=== PATIENT | male | born 1945 | race Caucasian/White ===

== ENCOUNTER → 2017-12-25 | Outpatient (CLI) | payer MEDICARE ==
--- NOTE | 2017-12-25 12:11 | ECHOF ---
Referral Reason:R00.1 Bradycardia, R01.1 Cardiac Murmur MEASUREMENTS -------- HEIGHT: 180.3 cm WEIGHT: 105.7 kg BP: RVIDd: 2.5 cm (< 3.3) IVSd: 1.2 cm (0.6 - 1.1) LVIDd: 4.7 cm (3.9 - 5.3) LVPWd: 1.4 cm (0.6 - 1.1) IVSs: 1.6 cm LVIDs: 2.2 cm LVPWs: 1.8 cm LAESV Index (A-L): 30.89 ml/m Ao Diam: 3.9 cm (2.0 - 3.7) AV Cusp: 2.2 cm (1.5 - 2.6) LA Diam: 4.0 cm (2.7 - 3.8) MV EXCURSION: 19.089 mm (> 18.000) MV EF SLOPE: 110 mm/s (70 - 150) EPSS: 0.5 cm MV E Moi: 0.68 m/s MV DecT: 303 ms MV A Moi: 0.83 m/s MV E/A Ratio: 0.82 AV maxP.38 mmHg AV meanP.03 mmHg RAP: 5.00 mmHg RVSP: 12.51 mmHg FINDINGS -------- Sinus rhythm. This was a technically good study. The left ventricular size is normal. There is mild concentric left ventricular hypertrophy. Overa ll left ventricular systolic function is normal with, an EF between 55 - 60 %. The right ventricle is normal in size and function. LA is midly dilated 29-33ml/m2. The right atrium is normal in size. Aortic valve is trileaflet and is mildly thickened. There is mild aortic valve sclerosis. Peak/me an gradient across the Aortic Valve is 23.38mmHg / 12.03mmHg. The mitral valve leaflets are mildly thickened. Mild mitral regurgitation is present. Mild tricuspid regurgitation present. The right ventricular systolic pressure, as measured by Doppl er, is 12.51mmHg. Pulmonic valve appears structurally normal. The aortic root size is normal. Normal inferior vena cava with normal inspiratory collapse consistent with estimated right atrial pre ssure of 5 mmHg. The pericardium is normal. CONCLUSIONS -------- 1. Sinus rhythm. 2. This was a technically good study. 3. The left ventricular size is normal. 4. There is mild concentric left ventricular hypertrophy. 5. Overall left ventricular systolic function is normal with, an EF between 55 - 60 %. 6. The right ventricle is normal in size and function. 7. LA is midly dilated 29-33ml/m2. 8. The right atrium is normal in size. 9. Aortic valve is trileaflet and is mildly thickened. 10. There is mild aortic valve sclerosis. 11. Peak/mean gradient across the Aortic Valve is 23.38mmHg / 12.03mmHg. 12. The mitral valve leaflets are mildly thickened. 13. Mild mitral regurgitation is present. 14. Mild tricuspid regurgitation present. 15. The right ventricular systolic pressure, as measured by Doppler, is 12.51mmHg. 16. Pulmonic valve appears structurally normal. 17. The aortic root size is normal. 18. Normal inferior vena cava with normal inspiratory collapse consistent with estimated right atrial pressure of 5 mmHg. 19. The pericardium is normal. BRUSH WORKER: Salena Pugh RDCS
--- NOTE | 2018-01-01 12:54 | HM ---
HOLTER MONITOR REPORT DCG: INDICATION: Palpitations. The patient was monitored for 24 hours. The baseline rhythm appeared to be a sinus mechanism with a minimum heart rate of 39 beats per minute, max heart rate 117 beats per minute. The average heart rate of 52 beats per minute. Ventricular ectopic events were rare and reported is less than 1% of total pace count and presented as PVCs as well as bigeminy and trigeminy. Supraventricular ectopy events were rare. No evidence of sinus pause or sinus arrest. No evidence of any advanced AV block seen. The patient reported no symptoms. CONCLUSION: 1. Sinus rhythm as a baseline mechanism. 2. Rare ventricular ectopic events. 3. Rare supraventricular ectopic events. 4. The patient did have multiple episodes of bigeminy and trigeminy. 5. No evidence of sinus pause or sinus arrest. 6. The patient reported no symptoms. MMODL / IJN: [id number] /
== END | disposition home or self-care (01) ==
LOC: RADECHMAIN 11:15
PROVIDERS: ATTEND Family Medicine
DX: I08.3 Combined rheumatic disorders of mitral, aortic and tricuspid valves (principal)
CPT/HCPCS: 93225; 93226; 93306

== ENCOUNTER 2018-01-14 06:48 | Day surgery (SDC) | payer MEDICARE ==
[2018-01-12 15:19] VITALS: BMI 30.2
[~2018-01-14 06:48] MED LIST: LACTATED RINGERS 1,000 ML IV SCH
[2018-01-14 07:15] VITALS: RESP 14; TEMP 97.9
[2018-01-14] MEDS ORDERED: LIDOCAINE 1% INJ 10MG/ML (20 ML MDV) ONE (07:40)
[2018-01-14] MEDS ORDERED: PROPOFOL 10 MG/ML 20 ML VIAL IV ONE (07:40)
--- NOTE | 2018-01-14 08:00 | P.PCN ---
Date of Procedure: 01/14/18 Procedure(s) Performed: BRIEF HISTORY: Patient is a 72-year-old pleasant male, scheduled for an elective colonoscopy as a part of evaluation of prior history of colon polyps. Last upper endoscopy was 5 years ago. PROCEDURE PERFORMED: Colonoscopy. PREOPERATIVE DIAGNOSIS: History of colon polyps. IV sedation per Anesthesia. PROCEDURE: After informed consent was obtained, the patient, was brought into the endoscopy unit. IV sedation was administered by Anesthesia under continuous monitoring. Digital rectal examination was normal. Initially the Olympus CF- 160 flexible video colonoscope was then inserted in the rectum, gradually advanced into the cecum without any difficulty. Careful examination was performed as the scope was gradually being withdrawn. Ileocecal valve and the appendiceal orifice were visualized and appeared normal. Prep was fair.. Mucosa of the cecum, appeared normal. In the ascending colon there was a 7-8 mm flat polyp that was by snare polypectomy. Rest of the ascending colon, transverse colon, descending colon, sigmoid colon, and rectum appeared normal. Retroflexion was performed in the rectum and no lesions were seen. The patient tolerated the procedure well. IMPRESSION: 7-8 mm flat ascending colon polyp status post polypectomy Rest of the colon appeared normal RECOMMENDATIONS: Findings of this examination were discussed with the patient as well as his family. He was advised to follow with the biopsy results. If the biopsy shows adenoma, she can have a repeat colonoscopy in 5 years.
[2018-01-14 08:19] VITALS: BP 118/70; PULSE 52
== END 2018-01-14 08:57 | disposition home or self-care (01) ==
LOC: ORWHC2ENDO 06:48
PROVIDERS: ATTEND Internal Medicine Gastroenterology
DX: Z12.31 Encounter for screening mammogram for malignant neoplasm of breast (principal); D17.79 Benign lipomatous neoplasm of other sites; Z86.010 Personal history of colon polyps; E78.5 Hyperlipidemia, unspecified; N40.0 Benign prostatic hyperplasia without lower urinary tract symptoms; Z88.1 Allergy status to other antibiotic agents; Z88.2 Allergy status to sulfonamides; Z79.899 Other long term (current) drug therapy; Z79.82 Long term (current) use of aspirin
CPT/HCPCS: 88305; 45385; J2001; J2704

== ENCOUNTER → 2021-03-13 | Outpatient (CLI) | payer MEDICARE ==
--- NOTE | 2021-03-13 15:00 | ECHOF ---
Referral Reason:R01.1 murmur MEASUREMENTS -------- HEIGHT: 185.4 cm WEIGHT: 91.2 kg BP: IVSd: 1.1 cm (0.6 - 1.1) LVIDd: 4.7 cm (3.9 - 5.3) LVPWd: 1.2 cm (0.6 - 1.1) EDV(Teich): 104 ml IVSs: 1.9 cm LVIDs: 2.7 cm LVPWs: 1.8 cm %IVS Thck: 73 % ESV(Teich): 28 ml EF(Teich): 73 % %FS: 42 % SV(Teich): 76 ml RVIDd: 4.3 cm (< 3.3) LALs A4C: 6.5 cm LAAs A4C: 27.0 cm LAESV A-L A4C: 95 ml LAESV MOD A4C: 90 ml LALs A2C: 6.4 cm LAAs A2C: 25.6 cm LAESV A-L A2C: 86 ml LAESV MOD A2C: 82 ml LAESV(A-L): 91 ml LAESV Index (A-L): 42.17 ml/m Ao Diam: 3.6 cm (2.0 - 3.7) LA Diam: 4.6 cm (2.7 - 3.8) AV Cusp: 1.9 cm (1.5 - 2.6) EPSS: 0.3 cm MV E Moi: 0.71 m/s MV DecT: 402 ms MV Dec Glascock: 1.8 m/s MV A Moi: 0.64 m/s MV E/A Ratio: 1.11 MV PHT: 117 ms LVOT Vmax: 1.03 m/s LVOT maxP.23 mmHg AV Vmax: 2.14 m/s AV maxP.26 mmHg AV Vmax: 2.32 m/s AV Vmean: 1.76 m/s AV maxP.59 mmHg AV meanP.50 mmHg AV Env.Ti: 308 ms AV VTI: 54.1 cm AR Vmax: 3.72 m/s AR maxP.31 mmHg AR PHT: 1112 ms AR Dec Time: 3835 ms AR Dec Glascock: 1.0 m/s TR Vmax: 2.26 m/s TR maxP.37 mmHg RAP: 5.00 mmHg RVSP: 25.37 mmHg MV EF SLOPE: 64.48 mm/s (70 - 150) MV EXCURSION: 21.52 mm (> 18.000) FINDINGS -------- Resting bradycardia (HR<60bpm). This was a technically adequate study. The left ventricular size is normal. There is mild concentric left ventricular hypertrophy. Overa ll left ventricular systolic function is normal with, an EF between 55 - 60 %. The right ventricle is moderately enlarged. LA is moderately dilated 34-39 ml/m2 The right atrial size is normal. Interatrial and interventricular septum intact. The aortic valve is trileaflet and appears structurally normal. Trace to mild aortic regurgitation. There is mild aortic stenosis present. The maximum velocity across the aortic valve is 2.32m/s. Peak/mean gradient across the Aortic Valve is 21.59mmHg / 13.50mmHg. Mild mitral regurgitation is present. Mild tricuspid regurgitation present. There is no evidence of pulmonary hypertension. The right v entricular systolic pressure, as measured by Doppler, is 25.37mmHg. There is no pulmonic regurgitation present. The aortic root size is normal. IVC Not well visulized. There is no pericardial effusion. CONCLUSIONS -------- 1. The left ventricular size is normal. 2. There is mild concentric left ventricular hypertrophy. 3. Overall left ventricular systolic function is normal with, an EF between 55 - 60 %. 4. The right ventricle is moderately enlarged. 5. LA is moderately dilated 34-39 ml/m2 6. Trace to mild aortic regurgitation. 7. There is mild aortic stenosis present. 8. The maximum velocity across the aortic valve is 2.32m/s. 9. Peak/mean gradient across the Aortic Valve is 21.59mmHg / 13.50mmHg. 10. Mild mitral regurgitation is present. 11. Mild tricuspid regurgitation present. MARKETING ANALYTICS ANALYST: Felicia Matos GISSELLE
== END | disposition home or self-care (01) ==
LOC: RADECHMAIN 11:06
PROVIDERS: ATTEND Family Medicine
DX: I08.3 Combined rheumatic disorders of mitral, aortic and tricuspid valves (principal)
CPT/HCPCS: 93306

== ENCOUNTER 2021-05-31 20:22 | Emergency (ER) | payer MEDICARE ==
[2021-05-31 20:30] VITALS: BP 127/71; PULSE 50; RESP 19; TEMP 97.8
--- NOTE | 2021-05-31 21:05 | ED ---
Recheck HPI - General Chief Complaint: Recheck/Abnormal Lab/Rx Stated Complaint: covid exposure Source: patient, RN notes reviewed Mode of arrival: ambulatory - History of Present Illness Initial Comments: Patient presents to the emergency department complaining of being exposed COVID- 19 and his . Patient really has no symptoms. Denies any shortness of breath. No fever. No sore throat. No headache. No body aches. No headache, no fever or chills, no changes in vision or hearing, no sore throat or difficulty with speech, no neck pain, no chest pain or shortness of breath, no abdominal pain, no nausea or vomiting, no changes in urination or bowel movements, no numbness or tingling, no extremity pain, no skin rashes or lesions. - Related Data Home Medications Medication Instructions Recorded Confirmed Ascorbic Acid [Vitamin C] 500 mg PO DAILY 01/12/18 01/14/18 Aspirin [Adult Low Dose Aspirin EC] 81 mg PO DAILY 01/12/18 01/14/18 Cholecalciferol (Vitamin D3) 2,000 unit PO DAILY 01/12/18 01/14/18 [Vitamin D3] Cranberry Fruit Concentrate 450 mg PO DAILY 01/12/18 01/14/18 [Cranberry] Doxazosin [Cardura] 1 mg PO BID 01/12/18 01/14/18 Ferrous Sulfate [Feosol] 325 mg PO DAILY 01/12/18 01/14/18 Finasteride [Proscar] 5 mg PO DAILY 01/12/18 01/14/18 Lovastatin [Mevacor] 40 mg PO HS 01/12/18 01/14/18 Lutein 20 mg PO DAILY 01/12/18 01/14/18 Multivitamin [Men's Multi-Vitamin] 1 each PO DAILY 01/12/18 01/14/18 [place]-3/Dha/Epa/Fish Oil [Fish Oil 300 mg PO DAILY 01/12/18 01/14/18 500 mg Softgel] Riboflavin (Vitamin B2) [Vitamin 100 mg PO DAILY 01/12/18 01/14/18 B-2] Zinc 50 mg PO DAILY 01/12/18 01/14/18 Allergies Allergy/AdvReac Type Severity Reaction Status Date / Time bacitracin Allergy Unknown Rash/Hives Verified 05/31/21 20:30 [From Neosporin ([id number])] neomycin Allergy Unknown Rash/Hives Verified 05/31/21 20:30 [From Neosporin ([id number])] polymyxin B Allergy Unknown Rash/Hives Verified 05/31/21 20:30 [From Neosporin ([id number])] Review of Systems ROS Statement: Those systems with pertinent positive or pertinent negative responses have been documented in the HPI. ROS Other: All systems not noted in ROS Statement are negative. 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 History of Any Multi-Drug Resistant Organisms: None Reported Past Surgical History: Hernia Repair Past Anesthesia/Blood Transfusion Reactions: No Reported Reaction Past Psychological History: No Psychological Hx Reported Smoking Status: Never smoker Past Alcohol Use History: Occasional Past Drug Use History: None Reported - Past Family History Mother Family Medical History: Cancer Brother(s) Family Medical History: Cancer Additional Family Medical History / Comment(s): 2 BROTHERS FROM COLON CANCER General Exam General appearance: alert, in no apparent distress Head exam: Present: atraumatic, normocephalic, normal inspection Eye exam: Present: normal appearance, PERRL, EOMI. Absent: scleral icterus, conjunctival injection, periorbital swelling ENT exam: Present: normal exam, mucous membranes moist Neck exam: Present: normal inspection. Absent: tenderness, meningismus, lymphadenopathy Respiratory exam: Present: normal lung sounds bilaterally. Absent: respiratory distress, wheezes, rales, rhonchi, stridor Cardiovascular Exam: Present: regular rate, normal rhythm, normal heart sounds. Absent: systolic murmur, diastolic murmur, rubs, gallop, clicks GI/Abdominal exam: Present: soft, normal bowel sounds. Absent: distended, tenderness, guarding, rebound, rigid Extremities exam: Present: normal inspection, full ROM, normal capillary refill. Absent: tenderness, pedal edema, joint swelling, calf tenderness Back exam: Present: normal inspection Neurological exam: Present: alert, oriented X3, CN II-XII intact Psychiatric exam: Present: normal affect, normal mood Skin exam: Present: warm, dry, intact, normal color. Absent: rash Course Vital Signs 05/31/21 20:24 Temperature 97.8 F Pulse Rate 50 L Respiratory 19 Rate Blood Pressure 127/71 O2 Sat by Pulse 98 Oximetry Medical Decision Making - Medical Decision Making Exposure to COVID-19, no symptoms Negative COVID-19 test Patient was told to return to the ER for any signs or symptoms worsen. Told to return immediately if any other problems arise. All questions answered. Treatment plan discussed. Patient in agreement Every effort has been made to ensure accuracy of this dictation. However, due to the limitations of electronic medical records and dictation devices, errors in charting still occur. - Lab Data Lab Results 05/31/21 Range/Units 20:29 Coronavirus (PCR) Not Detected (Not Detectd) Disposition Clinical Impression: Exposure to COVID-19 virus Disposition: HOME SELF-CARE Condition: Good Instructions (If sedation given, give patient instructions): COVID-19 (Coronavirus Disease 2019) (ED) Additional Instructions: Follow-up with your regular physician as directed. Return to the ER immediately if any symptoms worsen, new symptoms arise, or any other problems develop. Is patient prescribed a controlled substance at d/c from ED?: No Referrals: Lasr Will DO [Primary Care Provider] - 06/07/21 (As needed) Time of Disposition: 21:05
== END 2021-05-31 21:22 | disposition home or self-care (01) ==
LOC: EC 20:22
DX: Z11.52 Encounter for screening for COVID-19 (principal); Z20.822 Contact with and (suspected) exposure to COVID-19
CPT/HCPCS: 87635; 99282

== ENCOUNTER 2021-06-06 11:58 | Emergency (ER) | payer MEDICARE ==
[2021-06-06 12:30] VITALS: TEMP 97.6
--- NOTE | 2021-06-06 13:13 | ED ---
General Adult HPI - General Chief complaint: Recheck/Abnormal Lab/Rx Stated complaint: Covid test/cough Time Seen by Provider: 06/06/21 12:38 Source: patient, RN notes reviewed Mode of arrival: ambulatory Limitations: no limitations - History of Present Illness Initial comments: 75-year-old male presented to the emergency department with chief complaint of requesting covid 19 testing. Patient states that his tested positive for covid19 symptoms started 2 days ago with increased nasal congestion without cough no shortness breath no chest pain. Patient offers no other complaints denies any nausea vomiting diarrhea constipation - Related Data Home Medications Medication Instructions Recorded Confirmed Ascorbic Acid [Vitamin C] 500 mg PO DAILY 01/12/18 01/14/18 Aspirin [Adult Low Dose Aspirin EC] 81 mg PO DAILY 01/12/18 01/14/18 Cholecalciferol (Vitamin D3) 2,000 unit PO DAILY 01/12/18 01/14/18 [Vitamin D3] Cranberry Fruit Concentrate 450 mg PO DAILY 01/12/18 01/14/18 [Cranberry] Doxazosin [Cardura] 1 mg PO BID 01/12/18 01/14/18 Ferrous Sulfate [Feosol] 325 mg PO DAILY 01/12/18 01/14/18 Finasteride [Proscar] 5 mg PO DAILY 01/12/18 01/14/18 Lovastatin [Mevacor] 40 mg PO HS 01/12/18 01/14/18 Lutein 20 mg PO DAILY 01/12/18 01/14/18 Multivitamin [Men's Multi-Vitamin] 1 each PO DAILY 01/12/18 01/14/18 [place]-3/Dha/Epa/Fish Oil [Fish Oil 300 mg PO DAILY 01/12/18 01/14/18 500 mg Softgel] Riboflavin (Vitamin B2) [Vitamin 100 mg PO DAILY 01/12/18 01/14/18 B-2] Zinc 50 mg PO DAILY 01/12/18 01/14/18 Allergies Allergy/AdvReac Type Severity Reaction Status Date / Time bacitracin Allergy Unknown Rash/Hives Verified 06/06/21 12:30 [From Neosporin ([id number])] neomycin Allergy Unknown Rash/Hives Verified 06/06/21 12:30 [From Neosporin ([id number])] polymyxin B Allergy Unknown Rash/Hives Verified 06/06/21 12:30 [From Neosporin ([id number])] Review of Systems ROS Statement: Those systems with pertinent positive or pertinent negative responses have been documented in the HPI. ROS Other: All systems not noted in ROS Statement are negative. 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 History of Any Multi-Drug Resistant Organisms: None Reported Past Surgical History: Hernia Repair Past Anesthesia/Blood Transfusion Reactions: No Reported Reaction Past Psychological History: No Psychological Hx Reported Smoking Status: Never smoker Past Alcohol Use History: Occasional Past Drug Use History: None Reported - Past Family History Mother Family Medical History: Cancer Brother(s) Family Medical History: Cancer Additional Family Medical History / Comment(s): 2 BROTHERS FROM COLON CANCER General Exam Limitations: no limitations General appearance: alert, in no apparent distress Head exam: Present: atraumatic, normocephalic, normal inspection Eye exam: Present: normal appearance, PERRL, EOMI. Absent: scleral icterus, conjunctival injection, periorbital swelling ENT exam: Present: normal exam, mucous membranes moist Neck exam: Present: normal inspection, full ROM. Absent: tenderness, meningismus, lymphadenopathy Respiratory exam: Present: normal lung sounds bilaterally. Absent: respiratory distress, wheezes, rales, rhonchi, stridor Cardiovascular Exam: Present: regular rate, normal rhythm, normal heart sounds. Absent: systolic murmur, diastolic murmur, rubs, gallop, clicks Course Vital Signs 06/06/21 12:24 Temperature 97.6 F Pulse Rate 51 L Respiratory 18 Rate Blood Pressure 110/63 O2 Sat by Pulse 97 Oximetry Medical Decision Making - Medical Decision Making Patient received monoclonal antibodies for COVID-19. Patient discharged in stable condition return parameters discussed. - Lab Data Lab Results 06/06/21 Range/Units 12:33 Coronavirus (PCR) Detected A (Not Detectd) Disposition Clinical Impression: COVID-19 Disposition: HOME SELF-CARE Condition: Stable Instructions (If sedation given, give patient instructions): COVID-19 (Coronavirus Disease 2019) (ED) Additional Instructions: Please return to the Emergency Department if symptoms worsen or any other concerns. Is patient prescribed a controlled substance at d/c from ED?: No Referrals: SouLars aldana DO [Primary Care Provider] - 1-2 days Time of Disposition: 13:12
[2021-06-06] MEDS ORDERED: BEBTELOVIMAB (EUA) 175 MG/2 ML VIAL IV ONE (13:30)
[2021-06-06 15:07] VITALS: BP 106/71; PULSE 54; RESP 18
== END 2021-06-06 15:11 | disposition home or self-care (01) ==
LOC: EC 11:58
DX: U07.1 COVID-19 (principal)
CPT/HCPCS: 87635; 99283; Q0222

== ENCOUNTER → 2023-03-03 | Outpatient (CLI) | payer MEDICARE ==
--- NOTE | 2023-03-04 09:58 | CA ---
Transthoracic Echo Report Name: Bebeto Thorpe Age: 77 Gender: M : 1945 Exam Date: 03/03/2023 16:16 Exam Location: [facility] Ht (in): 73 Wt (lb): 170 Ordering Physician: Lars Will DO Attending/Referring Phys: Lars Will DO [employer] Pump Tender Felicia Matos RDCS Procedure CPT: Indications: R01.1 CARDIAC MURMUR, UNSPECIFIED Cardiac Hx: Technical Quality: Fair Contrast 1: Total Dose (mL): Contrast 2: Total Dose (mL): MEASUREMENTS (Male / Female) Normal Values 2D ECHO LV Diastolic Diameter PLAX 4.6 cm 4.2 - 5.9 / 3.9 - 5.3 cm LV Systolic Diameter PLAX 2.1 cm IVS Diastolic Thickness 1.3 cm 0.6 - 1.0 / 0.6 - 0.9 cm LVPW Diastolic Thickness 1.2 cm 0.6 - 1.0 / 0.6 - 0.9 cm LV Relative Wall Thickness 0.5 RV Internal Dim ED PLAX 3.9 cm LA Volume 106.0 cm??? 18 - 58 / 22 - 52 cm??? LA Volume Index 53.3 cm???/m??? 16 - 28 cm???/m??? M-MODE Aortic Root Diameter MM 3.7 cm LA Systolic Diameter MM 4.4 cm LA Ao Ratio MM 1.2 AV Cusp Separation MM 1.4 cm DOPPLER AV Peak Velocity 228.6 cm/s AV Peak Gradient 20.9 mmHg AV Mean Velocity 153.8 cm/s AV Mean Gradient 10.6 mmHg AV Velocity Time Integral 52.7 cm LVOT Peak Velocity 112.6 cm/s LVOT Peak Gradient 5.1 mmHg LVOT Velocity Time Integral 27.4 cm MV Area PHT 3.0 cm??? Mitral E Point Velocity 91.6 cm/s Mitral A Point Velocity 73.7 cm/s Mitral E to A Ratio 1.2 MV Deceleration Time 249.4 ms MV E' Velocity 6.5 cm/s Mitral E to MV E' Ratio 14.1 TR Peak Velocity 186.8 cm/s TR Peak Gradient 14.0 mmHg Right Ventricular Systolic Press 18.4 mmHg FINDINGS Left Ventricle Mildly increased left ventricular wall thickness. Left ventricular cavity size normal. Normal left ventricular systolic function with no obvious regional wall motion abnormalities. Left ventricular ejection fraction is estimated at 55 %. Right Ventricle Mild right ventricular dilatation. Right ventricular systolic pressure within normal limits. Right Atrium Normal right atrial size. Left Atrium Severely increased left atrial volume. Mildly increased left atrial area. Mitral Valve Structurally normal mitral valve. Mitral valve thickened. Mild mitral annular calcification. Moderate mitral regurgitation. Aortic Valve Trileaflet aortic valve. Mild aortic stenosis with a peak gradient of 21 mmHg and a mean gradient of 11 mmHg. Trace aortic regurgitation. Tricuspid Valve Structurally normal tricuspid valve. Mild tricuspid regurgitation. Pulmonic Valve Structurally normal pulmonic valve. Pericardium No pericardial effusion. Aorta Normal size aortic root and proximal ascending aorta. CONCLUSIONS LVH with preserved systolic function Calcific aortic stenosis, mild Previewed by: Dr. Eddie Hoffmann MD (Electronically Signed) Final Date: 04 March 2023 09:57
== END | disposition home or self-care (01) ==
LOC: RADECHMAIN 16:10
PROVIDERS: ATTEND Family Medicine
DX: I51.7 Cardiomegaly (principal); I35.0 Nonrheumatic aortic (valve) stenosis; R01.1 Cardiac murmur, unspecified
CPT/HCPCS: 93306

== ENCOUNTER 2023-04-04 09:57 | Day surgery (SDC) | payer MEDICARE ==
[~2023-04-04 09:57] MED LIST changes: -LACTATED RINGERS 1,000 ML IV SCH; +LIDOCAINE 1% (10MG/ML) FOR IV START INTRADERMA PRN; +ONDANSETRON 4 MG/2 ML VIAL IVP PRN
[2023-04-04] MEDS: LACTATED RINGERS 1,000 ML IV SCH (10:06)
[2023-04-04 10:25] VITALS: TEMP 97.9
[2023-04-04] MEDS ORDERED: PROPOFOL 10 MG/ML 20 ML VIAL IV ONE (11:05)
[2023-04-04] MEDS ORDERED: LIDOCAINE 1% INJ 10MG/ML (20 ML MDV) ONE (11:05)
--- NOTE | 2023-04-04 11:23 | P.PCN ---
Date of Procedure: 04/04/23 Procedure(s) Performed: BRIEF HISTORY: Patient is a 77-year-old pleasant white male scheduled for an elective colonoscopy as a part of evaluation of prior history of colon polyps. Last coloscopy was 5 years ago. PROCEDURE PERFORMED: Colonoscopy. PREOPERATIVE DIAGNOSIS: She of colon polyps.. IV sedation per Anesthesia. PROCEDURE: After informed consent was obtained, the patient, was brought into the endoscopy unit. IV sedation was administered by Anesthesia under continuous monitoring. Digital rectal examination was normal. Initially the Olympus CF-160 flexible video colonoscope was then inserted in the rectum, gradually advanced into the cecum without any difficulty. Careful examination was performed as the scope was gradually being withdrawn. Ileocecal valve and the appendiceal orifice were visualized and appeared normal. Prep was excellent. Mucosa of the cecum, ascending colon, transverse colon, descending colon, sigmoid colon, and rectum appeared normal. Retroflexion was performed in the rectum and small internal hemorrhoids were seen. The patient tolerated the procedure well. IMPRESSION: Normal-appearing colon from rectum to cecum with no evidence of colorectal neoplasia Small internal hemorrhoids . RECOMMENDATIONS: Findings of this examination were discussed with the patient as well as his family. He was advised to be on a high-fiber diet and take fiber supplements a regular basis..
[2023-04-04 12:00] VITALS: BP 120/67; PULSE 50; RESP 20
== END 2023-04-04 12:09 | disposition home or self-care (01) ==
LOC: ORWHC2ENDO 09:57
PROVIDERS: ATTEND Internal Medicine Gastroenterology
DX: Z12.11 Encounter for screening for malignant neoplasm of colon (principal); K64.8 Other hemorrhoids; E78.5 Hyperlipidemia, unspecified; N40.0 Benign prostatic hyperplasia without lower urinary tract symptoms; H57.9 Unspecified disorder of eye and adnexa; Z86.010 Personal history of colon polyps; Z79.82 Long term (current) use of aspirin; Z79.899 Other long term (current) drug therapy
CPT/HCPCS: 45378; J2001; J2704